=== PATIENT | male | born 1965 | race Caucasian/White ===

== ENCOUNTER 2018-08-20 21:06 | Emergency (ER) | payer BC, OTHER ==
[2018-08-20] MEDS: NORCO, ANEXSIA 5/325MG TABLET (HYDROcodone/ACETAMINOPHEN) PO (20:48)
[2018-08-20] MEDS: NORCO 5/325MG TABLET (BULK FOR ED) PO (21:02)
== END 2018-08-20 21:13 | disposition home or self-care (01) ==
LOC: M ED 21:06
DX: T18.9XXA Foreign body of alimentary tract, part unspecified, initial encounter (principal); Y92.9 Unspecified place or not applicable; Y93.9 Activity, unspecified; Z98.818 Other dental procedure status; M06.9 Rheumatoid arthritis, unspecified; I10 Essential (primary) hypertension; E78.00 Pure hypercholesterolemia, unspecified; Q87.1 Congenital malformation syndromes predominantly associated with short stature; I89.0 Lymphedema, not elsewhere classified; Z79.899 Other long term (current) drug therapy
CPT/HCPCS: 71045